=== PATIENT | male | born 1995 | race Caucasian/White ===

== ENCOUNTER 2019-05-20 13:54 | Outpatient (CLI) | payer BC ==
--- NOTE | 2019-05-20 15:33 | ULT ---
EXAM: Testicular/scrotal ultrasound HISTORY: Right testicular mass COMPARISON: None TECHNIQUE: Multiplanar grayscale and color Doppler images were obtained in a testicular/scrotal ultra sound. Spectral analysis of the Doppler waveforms of the testicles were performed. FINDINGS: Right testicle: Well-circumscribed hypoechoic mass in the right testicle measuring 1.3 cm in size. Th is demonstrates minimal internal flow. Normal flow is seen within the right testicle. Left testicle: Normal in echogenicity. No focal mass. Normal internal flow. Right epididymis. No epididymal cyst. Normal internal flow. Left epididymis. No epididymal cyst. Normal internal flow. No hydrocele is present. No varicocele is present. IMPRESSION: Right testicle mass. A primary testicular neoplasm such as a seminoma must be excluded. A n epidermoid cyst is also a likely possibility.
== END 2019-05-20 13:55 | disposition home or self-care (01) ==
LOC: SCSULT 13:54
PROVIDERS: ATTEND Family Medicine Sports Medicine
DX: N50.89 Other specified disorders of the male genital organs (principal)
CPT/HCPCS: 76870; 93976